=== PATIENT | male | born 1935 | race Caucasian/White ===

== ENCOUNTER 2022-02-01 08:47 | Inpatient (IN) ==
[2022-02-01] MEDS ORDERED: ONDANSETRON 4 MG/2 ML VIAL IV STA (09:01)
[2022-02-01] MEDS ORDERED: SODIUM CHLORIDE 0.9% 1,000 ML IV STA (09:01)
[2022-02-01] MEDS ORDERED: PANTOPRAZOLE 40 MG VIAL IV STA (09:01)
[2022-02-01 09:16] LABS: Basophils % 0.4 % (0.0-0.8); Eosinophils # 0.1 10*3/uL (0.0-0.87); Eosinophils % 1.8 % (0.00-10.9); Hematocrit 34.7 VOL% (42.0-52.0); Hemoglobin 11.1 GM/DL (14.0-18.0); Immature Granulocytes % 0.4 %; Immature Granulocytes Absolute 0.02 #; Lymphocytes % 17.5 % (21.2-54.2); Mean Platelet Volume 10.1 FL (9.6-12.0); Monocytes # 0.5 10*3/uL (0.11-0.8); Monocytes % 8.6 % (1.7-12.7); Neutrophils % 71.3 % (38.7-73.9); Platelet Count 147 T/CUMM (130-400); Red Blood Count 3.54 MC/CUMM (3.8-5.5); Red Cell Distribution Width 14.5 % (9.3-17.3); White Blood Count 5.6 T/CUMM (4-12)
[2022-02-01 09:27] LABS: PT Patient Result 10.9 SECS (10.5-12.0); Partial Thromboplastin Time 28.5 SECS (23.8-32.1)
[2022-02-01 09:40] LABS: Albumin 3.5 G/DL (3.4-5.0); Bilirubin,Total 0.6 MG/DL (0.20-1.00); Calcium 9.1 MG/DL (8.5-10.1); Osmolality,Calculated 280.8 MOS/KG (273-304); Potassium 4.4 MMOL/L (3.5-5.1); Total Protein 6.9 G/DL (6.4-8.2)
[2022-02-01] MEDS ORDERED: ACETAMINOPHEN 325 MG TABLET PO PRN (11:10)
[2022-02-01] MEDS ORDERED: DEXTROSE 10% 250 ML BAG IV PRN (11:10)
[2022-02-01] MEDS ORDERED: ONDANSETRON 4 MG/2 ML VIAL IV PRN (11:10)
[2022-02-01] MEDS ORDERED: BISACODYL 5 MG TABLET PO PRN (11:10)
[2022-02-01] MEDS ORDERED: GLUCAGON 1 MG VIAL IM PRN (11:10)
[2022-02-01] MEDS ORDERED: NITROGLYCERIN SL 0.4 MG TABLET SL PRN (11:59)
[2022-02-01 12:15] LABS: Hematocrit 30.1 VOL% (42.0-52.0); Hemoglobin 9.7 GM/DL (14.0-18.0)
[2022-02-01 12:19] LABS: RBC,Urine 56 /HPF (0-4)
[2022-02-01 12:28] LABS: Bilirubin,Urine Negative (Negative); Blood, Urine Moderate mg/dL (Negative); Glucose,Urine (UA) Negative (Negative); Ketones,Urine Negative (Negative); Nitrite,Urine Negative (Negative); Protein,Urine 100 mg/dL (Negative); Urine Appearance Slightly Cloudy (Clear); Urine Color Yellow (Yellow); Urine Urobilinogen 0.2 eU/dL (<2.0); Urine pH 7.5 (4.5-8.0)
[2022-02-01] MEDS: SODIUM CHLORIDE 0.9% 1,000 ML IV SCH (12:30)
[2022-02-01] MEDS: PANTOPRAZOLE 40 MG VIAL IV SCH ×2 (12:59→22:00)
[2022-02-01 19:46] LABS: Hematocrit 28.1 VOL% (42.0-52.0)
[2022-02-01] MEDS: ROSUVASTATIN 20 MG TABLET PO SCH (22:00)
[2022-02-01] MEDS: SOTALOL 80 MG TABLET PO SCH (22:00)
[2022-02-02] MEDS: SODIUM CHLORIDE 0.9% 1,000 ML IV SCH ×2 (00:53→15:24)
[2022-02-02 05:41] LABS: Basophils % 0.5 % (0.0-0.8); Eosinophils # 0.1 10*3/uL (0.0-0.87); Eosinophils % 2.2 % (0.00-10.9); Hemoglobin 8.6 GM/DL (14.0-18.0); Immature Granulocytes % 0.2 %; Immature Granulocytes Absolute 0.01 #; Lymphocytes % 24.9 % (21.2-54.2); Mean Corpuscular HGB Conc 30.7 GM/DL (32-36); Mean Platelet Volume 10.4 FL (9.6-12.0); Monocytes # 0.4 10*3/uL (0.11-0.8); Monocytes % 10.9 % (1.7-12.7); Neutrophils % 61.3 % (38.7-73.9); Platelet Count 107 T/CUMM (130-400); Red Cell Distribution Width 14.5 % (9.3-17.3); White Blood Count 4.1 T/CUMM (4-12)
[2022-02-02 06:00] LABS: Albumin 2.7 G/DL (3.4-5.0); Bilirubin,Total 0.4 MG/DL (0.20-1.00); Calcium 8.4 MG/DL (8.5-10.1); Osmolality,Calculated 287.4 MOS/KG (273-304); Total Protein 5.5 G/DL (6.4-8.2)
[2022-02-02] MEDS: TAMSULOSIN 0.4 MG CAPSULE PO SCH (09:32)
[2022-02-02] MEDS: SOTALOL 80 MG TABLET PO SCH ×2 (09:32→21:04)
[2022-02-02] MEDS: PANTOPRAZOLE 40 MG VIAL IV SCH ×2 (09:41→21:06)
[2022-02-02] MEDS: cefTRIAXone 1,000 MG in SODIUM CHLORIDE 0.9% 100 ML IV SCH (09:46)
[2022-02-02 12:48] LABS: Hematocrit 27.9 VOL% (42.0-52.0); Hemoglobin 8.6 GM/DL (14.0-18.0)
[2022-02-02 19:47] LABS: Hematocrit 25.6 VOL% (42.0-52.0); Hemoglobin 8.3 GM/DL (14.0-18.0)
[2022-02-02] MEDS ORDERED: MAGNESIUM CITRATE 300 ML BOTTLE PO ONE (21:00)
[2022-02-02] MEDS: ROSUVASTATIN 20 MG TABLET PO SCH (21:04)
[2022-02-03] MEDS: SODIUM CHLORIDE 0.9% 1,000 ML IV SCH ×2 (04:21→17:36)
[2022-02-03 05:10] LABS: Basophils % 0.3 % (0.0-0.8); Eosinophils # 0.1 10*3/uL (0.0-0.87); Eosinophils % 2.3 % (0.00-10.9); Hematocrit 24.9 VOL% (42.0-52.0); Hemoglobin 7.7 GM/DL (14.0-18.0); Immature Granulocytes % 0.3 %; Immature Granulocytes Absolute 0.01 #; Lymphocytes # 0.9 10*3/uL (1.4-4.0); Lymphocytes % 24.8 % (21.2-54.2); Mean Corpuscular HGB Conc 30.9 GM/DL (32-36); Mean Corpuscular Volume 100.8 FL (87-102); Mean Platelet Volume 10.5 FL (9.6-12.0); Monocytes # 0.4 10*3/uL (0.11-0.8); Neutrophils % 61.3 % (38.7-73.9); Platelet Count 110 T/CUMM (130-400); Red Blood Count 2.47 MC/CUMM (3.8-5.5); Red Cell Distribution Width 14.7 % (9.3-17.3); White Blood Count 3.5 T/CUMM (4-12)
[2022-02-03 05:25] LABS: Calcium 8.2 MG/DL (8.5-10.1); Potassium 3.5 MMOL/L (3.5-5.1)
[2022-02-03] MEDS ORDERED: SODIUM CHLORIDE 0.9% 1,000 ML IV PRN ×2 (06:29→07:14)
[2022-02-03] MEDS ORDERED: SODIUM CHLORIDE 0.9% 500 ML IV SCH (06:30)
[2022-02-03 08:09] LABS: Hematocrit 25.4 VOL% (42.0-52.0)
[2022-02-03] MEDS ORDERED: PHENYLEPHRINE 1 MG/10 ML SYRINGE IV ONE (08:59)
[2022-02-03] MEDS ORDERED: propofoL 200 MG/20 ML VIAL IV ONE (08:59)
[2022-02-03] MEDS ORDERED: LIDOCAINE 2% 5 ML VIAL ONE (08:59)
[2022-02-03] MEDS ORDERED: POTASSIUM CHLORIDE 20 MEQ TABLET PO ONE (09:00)
[2022-02-03] MEDS: SOTALOL 80 MG TABLET PO SCH ×2 (10:38→21:38)
[2022-02-03] MEDS: TAMSULOSIN 0.4 MG CAPSULE PO SCH (10:39)
[2022-02-03] MEDS: BISACODYL 5 MG TABLET PO SCH ×3 (10:39→23:14)
[2022-02-03] MEDS: cefTRIAXone 1,000 MG in SODIUM CHLORIDE 0.9% 100 ML IV SCH (10:40)
[2022-02-03] MEDS: PANTOPRAZOLE 40 MG VIAL IV SCH ×2 (10:40→21:35)
[2022-02-03] MEDS ORDERED: POLYETHYLENE GLYCOL 3350/ELECTROLYTES 4,000 ML BOTTLE PO ONE (18:00)
[2022-02-03] MEDS ORDERED: POLYETHYLENE GLYCOL POWDER 255 GM BOTTLE PO ONE (18:00)
[2022-02-03] MEDS ORDERED: MAGNESIUM CITRATE 300 ML BOTTLE PO ONE (21:00)
[2022-02-03] MEDS: ROSUVASTATIN 20 MG TABLET PO SCH (21:38)
[2022-02-04] MEDS: SODIUM CHLORIDE 0.9% 1,000 ML IV SCH ×2 (00:26→10:35)
[2022-02-04 06:19] LABS: Basophils % 0.3 % (0.0-0.8); Eosinophils # 0.1 10*3/uL (0.0-0.87); Hematocrit 25.3 VOL% (42.0-52.0); Hemoglobin 7.9 GM/DL (14.0-18.0); Immature Granulocytes % 0.7 %; Immature Granulocytes Absolute 0.02 #; Lymphocytes # 0.8 10*3/uL (1.4-4.0); Lymphocytes % 26.7 % (21.2-54.2); Mean Corpuscular HGB Conc 31.2 GM/DL (32-36); Mean Corpuscular Volume 101.2 FL (87-102); Mean Platelet Volume 10.5 FL (9.6-12.0); Monocytes # 0.3 10*3/uL (0.11-0.8); Monocytes % 9.5 % (1.7-12.7); Neutrophils % 60.8 % (38.7-73.9); Platelet Count 115 T/CUMM (130-400); Red Cell Distribution Width 14.9 % (9.3-17.3)
[2022-02-04 06:31] LABS: Osmolality,Calculated 286.1 MOS/KG (273-304); Potassium 3.1 MMOL/L (3.5-5.1)
[2022-02-04] MEDS ORDERED: SODIUM CHLORIDE 0.9% 500 ML IV SCH (07:00)
[2022-02-04] MEDS: POTASSIUM CHLORIDE RIDER 10 MEQ/100 ML PREMIX IV PRN ×4 (07:26→15:41)
[2022-02-04] MEDS ORDERED: propofoL 200 MG/20 ML VIAL IV ONE (09:39)
[2022-02-04] MEDS ORDERED: ETOMIDATE 20 MG/10 ML VIAL IV ONE (09:39)
[2022-02-04] MEDS ORDERED: LIDOCAINE 2% 5 ML VIAL ONE (09:39)
[2022-02-04] MEDS: TAMSULOSIN 0.4 MG CAPSULE PO SCH (10:34)
[2022-02-04] MEDS: cefTRIAXone 1,000 MG in SODIUM CHLORIDE 0.9% 100 ML IV SCH (10:34)
[2022-02-04] MEDS: SOTALOL 80 MG TABLET PO SCH (10:35)
[2022-02-04] MEDS: PANTOPRAZOLE 40 MG VIAL IV SCH (10:35)
[2022-02-04 11:53] VITALS: BP 126/65
== END 2022-02-04 15:43 | disposition home or self-care (01) | DRG 813 ==
LOC: N.ED 08:47 → N.EDINP 08:47 → N.5E 11:52 → SUATTDRO 02-02 08:59
PROVIDERS: ADMIT Internal Medicine; ATTEND Internal Medicine